=== PATIENT | male | born 1935 | race Hispanic/Latino ===

== ENCOUNTER 2017-08-06 21:28 | Emergency (ER) | payer OTHER ==
[2017-08-06 21:58] LABS: APPEARANCE,URINE TURBID (CLEAR); BILIRUBIN,URINE NEGATIVE (NEGATIVE); COLOR,URINE RED (YELLOW); GLUCOSE, URINE (UA) NEGATIVE (NEGATIVE); KETONES,URINE NEGATIVE (NEGATIVE); LEUKOCYTE ESTERASE ,URINE TRACE (NEGATIVE); NITRATE,URINE NEGATIVE (NEGATIVE); OCCULT BLOOD,URINE LARGE (NEGATIVE); PROTEIN,URINE >=300 (NEGATIVE)
[2017-08-06 22:06] LABS: RBC,URINE TNTC /HPF (0-1)
[2017-08-06 22:07] LABS: BACTERIA,URINE Rare /HPF (None Seen); SQUAMOUS EPITHELIAL CELL,UR None Seen /HPF (0-2); WBC,URINE 0-1 /HPF (0-1)
[2017-08-06 22:07] LABS: BASOPHILS % (AUTO) 0.6 % (0.0-5.0); EOSINOPHILS % (AUTO) 2.2 % (0.0-8.0); HEMATOCRIT 41.1 % (42-54); LYMPHOCYTES % (AUTO) 16.8 % (21.0-51.0); MEAN CORPUSCULAR HEMOGLOBIN 29.2 pg (27.0-33.0); MEAN CORPUSCULAR HGB CONC 34.8 g/dL (32.0-36.0); NEUTROPHILS % (AUTO) 71.4 % (40.0-77.0); PLATELET COUNT (AUTO) 271 K/uL (130-400); RED BLOOD CELL COUNT(AUTO) 4.89 MIL/uL (4.50-6.20); RED CELL DISTRIBUTION WIDTH 13.2 % (11.0-15.5); WHITE BLOOD COUNT (AUTO) 9.5 K/uL (4.8-10.8)
[2017-08-06 22:18] LABS: CREATININE 1.3 mg/dL (0.5-1.5); POTASSIUM 4.4 mmol/L (3.5-5.1)
[2017-08-06 22:22] LABS: ALBUMIN 3.9 g/dL (3.5-5.0); BILIRUBIN,TOTAL 0.4 mg/dL (0.2-1.0); TOTAL PROTEIN, SERUM 7.6 g/dL (6.0-8.3)
[2017-08-06] MEDS ORDERED: IOPAMIDOL-370 75 ML VIAL IV ONE (23:15)
== END 2017-08-07 01:15 | disposition home or self-care (01) ==
LOC: EDH 21:28
DX: R31.9 Hematuria, unspecified (principal); I10 Essential (primary) hypertension; E07.9 Disorder of thyroid, unspecified; E78.5 Hyperlipidemia, unspecified; Z85.46 Personal history of malignant neoplasm of prostate
CPT/HCPCS: 36415; 51702; 74177; 80053; 81001; 85025; 99285; Q9967; 73560

== ENCOUNTER → 2017-08-06 | Outpatient (CLI) | payer OTHER | END | disposition home or self-care (01) | LOC: OIH 12:33 | PROVIDERS: ATTEND Family Medicine | DX: M25.561 Pain in right knee (principal) | CPT/HCPCS: 73560 ==

== ENCOUNTER 2017-08-09 13:41 | Emergency (ER) | payer OTHER ==
[2017-08-09 14:08] LABS: APPEARANCE,URINE Turbid (CLEAR); BILIRUBIN,URINE Negative (NEGATIVE); COLOR,URINE Orange (YELLOW); GLUCOSE, URINE (UA) Negative (NEGATIVE); KETONES,URINE Negative (NEGATIVE); LEUKOCYTE ESTERASE ,URINE Small (NEGATIVE); NITRATE,URINE Negative (NEGATIVE); OCCULT BLOOD,URINE Large (NEGATIVE); PROTEIN,URINE POS 2+ (NEGATIVE)
[2017-08-09 14:13] LABS: RBC,URINE >100 /HPF (0-1)
[2017-08-09 14:14] LABS: AMORPHOUS SEDIMENT,UR Few /LPF (None Seen); BACTERIA,URINE Few /HPF (None Seen); MUCUS,URINE Few LPF (None Seen); SQUAMOUS EPITHELIAL CELL,UR Rare /HPF (0-2)
[2017-08-09 14:36] LABS: BASOPHILS % (AUTO) 0.6 % (0.0-5.0); EOSINOPHILS % (AUTO) 0.3 % (0.0-8.0); HEMATOCRIT 42.1 % (42-54); LYMPHOCYTES % (AUTO) 10.5 % (21.0-51.0); MEAN CORPUSCULAR HEMOGLOBIN 28.5 pg (27.0-33.0); MEAN CORPUSCULAR HGB CONC 33.5 g/dL (32.0-36.0); MONOCYTES % (AUTO) 6.9 % (3.0-13.0); NEUTROPHILS % (AUTO) 81.7 % (40.0-77.0); PLATELET COUNT (AUTO) 292 K/uL (130-400); RED BLOOD CELL COUNT(AUTO) 4.95 MIL/uL (4.50-6.20); RED CELL DISTRIBUTION WIDTH 13.5 % (11.0-15.5); WHITE BLOOD COUNT (AUTO) 12.1 K/uL (4.8-10.8)
[2017-08-09 14:53] LABS: CREATININE 1.4 mg/dL (0.5-1.5); POTASSIUM 4.3 mmol/L (3.5-5.1)
[2017-08-09 14:57] LABS: ALBUMIN 3.8 g/dL (3.5-5.0); BILIRUBIN,TOTAL 0.6 mg/dL (0.2-1.0); TOTAL PROTEIN, SERUM 7.6 g/dL (6.0-8.3)
[2017-08-09] MEDS ORDERED: CEFTRIAXONE SODIUM 1 GM ONE (15:51)
[2017-08-09] MEDS ORDERED: SODIUM CHLORIDE 0.9% 250 ML IV ONE (15:51)
== END 2017-08-09 16:48 | disposition home or self-care (01) ==
LOC: EDH 13:41
DX: N39.0 Urinary tract infection, site not specified (principal); R33.9 Retention of urine, unspecified; E78.5 Hyperlipidemia, unspecified; I10 Essential (primary) hypertension; E07.9 Disorder of thyroid, unspecified; Z85.46 Personal history of malignant neoplasm of prostate
CPT/HCPCS: 36415; 80053; 81001; 85025; 96360; 99284; J0696; J7030

== ENCOUNTER → 2019-02-11 | Outpatient (CLI) | payer OTHER ==
[~2019-02-11] MED LIST: IOHEXOL 350 MG/ML 100ML INFUS..BTL IV ONE
[2019-02-11 13:24] LABS: CREATININE 1.4 mg/dL (0.5-1.5)
== END | disposition home or self-care (01) ==
LOC: RAH 12:29
PROVIDERS: ATTEND Family Medicine
DX: M79.604 Pain in right leg (principal); R09.02 Hypoxemia; R00.0 Tachycardia, unspecified
CPT/HCPCS: 36415; 71275; 82565; 84520; Q9967

== ENCOUNTER → 2019-02-18 | Outpatient (CLI) | payer OTHER | END | disposition home or self-care (01) | LOC: OIH 12:45 | PROVIDERS: ATTEND Family Medicine | DX: M77.32 Calcaneal spur, left foot (principal); M77.31 Calcaneal spur, right foot; M25.872 Other specified joint disorders, left ankle and foot; M25.871 Other specified joint disorders, right ankle and foot; M79.89 Other specified soft tissue disorders; M19.072 Primary osteoarthritis, left ankle and foot; M19.071 Primary osteoarthritis, right ankle and foot | CPT/HCPCS: 73610; 73630 ==

== ENCOUNTER → 2020-03-01 | Outpatient (CLI) | payer OTHER | END | disposition home or self-care (01) | LOC: OIH 13:20 | PROVIDERS: ATTEND Family Medicine | DX: M16.11 Unilateral primary osteoarthritis, right hip (principal); M25.551 Pain in right hip | CPT/HCPCS: 73502 ==

== ENCOUNTER → 2025-03-16 | Outpatient (CLI) | payer OTHER ==
[~2025-03-16] MED LIST changes: -IOHEXOL 350 MG/ML 100ML INFUS..BTL IV ONE; +IOHEXOL-350 50ML VIAL IV ONE
--- NOTE | 2025-03-16 23:48 | HMCIMG ---
Study CT Chest With and Without Intravenous Contrast Clinical History Shortness of breath. Technique Axial computed tomography images of the chest were obtained before and after intravenous contrast administration. Multiplanar reformatted images were reviewed. Total DLP: 602 mGy???cm. Contrast Intravenous contrast was administered without incident. Comparison None available. Findings Lungs: Lung hopper are hyperinflated. Diffuse ground-glass opacities with reticular infiltrates are present in the bilateral lower lobes, predominantly involving the posterobasal and anterobasal segments, compatible with chronic interstitial changes. No pulmonary mass, focal consolidation, or cavitary lesion identified. Mild bronchial wall thickening consistent with chronic bronchitis. Pleural Spaces: No pleural effusion or pneumothorax. Mediastinum and Heart: Normal cardiac size. No pericardial effusion. Moderate calcific atherosclerosis of the thoracic aorta. No mediastinal or hilar lymphadenopathy. Bones: Age-appropriate degenerative thoracolumbar spondylosis. No acute or destructive osseous lesion. Upper Abdomen: Visualized portions of the liver, spleen, pancreas, and adrenal glands are unremarkable.IMPRESSION: 1. Bilateral lower lobe ground-glass and reticular opacities involving the posterobasal and anterobasal segments, likely representing chronic interstitial and fibrotic changes. 2. Hyperinflated lungs with mild bronchial wall thickening, compatible with underlying chronic obstructive pulmonary disease (COPD). 3. Moderate calcific atherosclerosis of the thoracic aorta. 4. Age-appropriate degenerative thoracolumbar spondylosis. 5. No pulmonary mass, focal consolidation, cavitary lesion, pleural effusion, or pneumothorax identified. 6. Normal cardiac size without pericardial effusion. 7. No mediastinal or hilar lymphadenopathy. 8. Unremarkable visualized portions of the liver, spleen, pancreas, and adrenal glands. 9. Recommend clinical correlation for pulmonary function and follow-up CT if symptoms persist or progress. /[place]
== END | disposition home or self-care (01) ==
LOC: RAH 10:23
PROVIDERS: ATTEND Family Medicine
DX: J44.9 Chronic obstructive pulmonary disease, unspecified (principal); J98.4 Other disorders of lung; I77.810 Thoracic aortic ectasia; M47.815 Spondylosis without myelopathy or radiculopathy, thoracolumbar region; R06.02 Shortness of breath; R93.89 Abnormal findings on diagnostic imaging of other specified body structures
CPT/HCPCS: 71270; Q9967